=== PATIENT | male | born 1995 | race Two or more races ===

== ENCOUNTER 2025-01-31 21:52 | Emergency (ER) | payer BC, SELFPAY ==
[2025-01-31 21:54] VITALS: BMI 29.9
--- NOTE | 2025-01-31 22:01 | EDNOTE_ITS ---
ED Anxiety RME/HPI General Chief Complaint: General Adult/Misc Complain Stated Complaint: HEADACHE, NAUSEA,SOB Time Seen by Provider: 01/31/25 22:03 Arrival date/time: 01/31/25 21:52 RME / HPI RME / HPI narrative: See [facility] for Dr. Fowelr's HPI Documentation. Related Data Previous Rx's ?Medication ?Instructions ?Recorded acetaminophen 300 mg-codeine 30 mg 2 tab PO Q8H PRN pa in #20 tabs 02/01/25 tablet albuterol sulfate 90 mcg/actuation 2 puff inhalation Q 6H PRN 02/01/25 aerosol inhaler shortness of breath or wheez ing #8.5 grams ondansetron 4 mg disintegrating 4 mg PO TID PRN nausea and 02/01/25 tablet vomiting 30 days #10 tabs prednisone 50 mg tablet 50 mg PO QDAY #3 tabs Allergies Allergy/AdvReac Type Severity Reaction Status Date / Time No Known Allergies Allergy Verified 01/31/25 21:53 Review of Systems Review of Systems Systems Reviewed: All systems reviewed, normal except as documented ED Exam Narrative Physical exam: See [facility] for Dr. Fowler's Physical Exam Documentation. Course Quality Measures none Anxiety [facility] Narrative [facility] Narrative: This section includes all my notes and documentations, including HPI, PE, and ED course. 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 No other complaints. ROS: All negative except as documented in HPI. Physical Exam: General: Alert and oriented. No acute distress when remaining still. Eyes: Conjunctivae and lids clear. PERRL. EOMI. ENT: No nasal congestion. Neck: Supple. Heart: RRR. Lungs: No respiratory distress. Good air movement. No rhonchi, wheezing, rales. Abdomen: Soft and nontender. Normal bowel sounds. No distension. No rebound or guarding. Back: No CVA tenderness. Skin: Warm and dry. Neuro: Alert and oriented X 3. Cranial nerves II to XII grossly normal. No peripheral motor deficits. I reviewed all diagnostic test results: My interpretation of the EKG: NSR (77 bpm) with no ST-T changes. My interpretation of the chest x-ray is: NAD. My review of the Head/Brain CT report is: NAD. Blood tests remarkable for elevated carboxyhemoglobin. Covid/Influenza: Negative. At this point, diagnoses include: Carbon monoxide poisoning (mild) Treatment here included: 100% oxygen by none rebreather mask Xanax 0.5 mg Lopressor 25 mg Zofran 4 mg Significant improvement noted. Recommended supportive care. Based on my best medical judgment, made decision no further evaluation or treatment indicated at this time. Patient understands and agrees to the discharge instructions customized and printed, see below. Discharge instructions from Dr. Fowler: --No physical exertion for 3 days to help rest the lungs. ?No smoking or exposure to smoking or pets or dust or humidity. --Zithromax to kill the germs causing the bronchitis. --Prednisone to help decrease the swelling in the airways. --Albuterol 2 puffs every 4-6 hours for 3 days to help keep the airways open. Then as needed for cough or shortness of breath. --Tylenol with codeine for severe pain. --See a private doctor on 02/03/2025 if not completely better. --Seek immediate medical care with worsening or with any concerns. Javier Fowler MD Patient data External records reviewed:: [facility] previous records (Reviewed prior ED records from 10/24/22. Patient was seen for Elevated blood pressure reading.) Clinical information provided by:: patient Social determinants that could affect healthcare access:: none Patient has the following chronic illnesses:: Arthur reported How is presenting disease/condition affected by chronic disease/condition?: no chronic disease Evaluation data The following diagnostics were reviewed and interpreted by me:: lab results, radiology exam(s) and EKG tracing(s) (My interpretation of the EKG: NSR (77 bpm) with no ST-T changes. Javier Fowler MD) Lab and/or radiology exams considered but not ordered:: None Interpretation Summary: I reviewed all diagnostic test results: My interpretation of the EKG: NSR (77 bpm) with no ST-T changes. My interpretation of the chest x-ray is: NAD. My review of the Head/Brain CT report is: NAD. Blood tests remarkable for elevated carboxyhemoglobin. Covid/Influenza: Negative. Medications / Prescriptions Medications or Prescriptions considered but not ordered:: None Medication administrations:: Treatment here included: 100% oxygen by none rebreather mask Xanax 0.5 mg Lopressor 25 mg Zofran 4 mg Consultations Consultation(s) initiated? (list below): No Diagnosis Differential diagnosis anxiety: hyperventilation, panic disorder, acute anxiety and other (Carbon monoxide poisoning) Most likely diagnosis given after review of the tests above:: Mild carbon monoxide poisoning Admission Indicated Admission indicated?: not indicated Explain why admission is indicated or not indicated:: With significant improvement and no condition needing emergent intervention, there was no indication for admission. Admission Request Was there a request for admission?: No Disposition Plan Disposition Plan: Discharge Discharge Attestation Discharge Attestation: The patient and all family members were given an opportunity to ask questions and understood the discharge instructions. Discharge instructions specifically effects, indications for sooner follow up or return to the emergency department, and the expected course of current diagnosis. Patient condition: Stable Discharge Plan Plan Patient Disposition: HOME (Self Care) Prescriptions/Referrals Prescriptions/Med Rec: New acetaminophen-codeine 300-30 mg tablet 2 tab PO Q8H MDD 6 PRN (Reason: pain) Qty: 20 0RF prednisone 50 mg tablet 50 mg PO QDAY Qty: 3 0RF albuterol sulfate 90 mcg/actuation HFA aerosol inhaler 2 puff inhalation Q6H PRN (Reason: shortness of breath or wheezing) Qty: 8.5 0RF ondansetron 4 mg tablet,disintegrating 4 mg PO TID PRN (Reason: nausea and vomiting) 30 Days Qty: 10 0RF Referrals: Terence Hernandez MD [Primary Care Provider, Family Practice] - In 1 week Problem List Clinical Impression: Carbon monoxide exposure Patient/Caregiver Discharge Instructions Discharge Activity: activity as tolerated Education Materials: ED Carbon Monoxide Poisoning Additional Instructions: Discharge instructions from Dr. Fowler: --No physical exertion for 3 days to help rest the lungs. ?No smoking or exposure to smoking or pets or dust or humidity. --Zithromax to kill the germs causing the bronchitis. --Prednisone to help decrease the swelling in the airways. --Albuterol 2 puffs every 4-6 hours for 3 days to help keep the airways open. Then as needed for cough or shortness of breath. --Tylenol with codeine for severe pain. --See a private doctor on 02/03/2025 if not completely better. --Seek immediate medical care with worsening or with any concerns. Print Language: Kiswahili Stand Alone Forms: Kristine Award Info., Patient Portal Info Letter
[2025-01-31 22:02] VITALS: BP 161/91; PULSE 78; RESP 20; TEMP 37.1; O2SAT 98
--- NOTE | 2025-01-31 22:04 | EKG_ITS ---
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
--- NOTE | 2025-01-31 22:04 | XR_ITS ---
Examination: CT brain head without contrast. 2-D sagittal coronal reconstructions Date and time of exam:January 31, 2025 at 10:20 PM Indications: Headaches today CTDI: vol (mGy):53.5 DLP: (mGycm):1096 Technique: Multiple CT axial sections of the brain have been obtained, 5 mm slice thickness. Contrast has not been administered. 2-D sagittal, coronal reconstructions have been obtained Low dose protocols were performed. One or more of the following dose reduction techniques were used; automated exposure control, adjustment of the mA and/or KV according to patient size, use of iterative reconstruction technique. Findings: No significant ventricular enlargement. Intra-axial or extra-axial hemorrhage density is not seen. No mass effect or midline shift Basal cisterns are not remarkable. Fourth ventricle is midline. Cranial vault intact. Mild chronic frontal ethmoid sinusitis Impression: Negative for acute hemorrhage, mass effect or midline shift
--- NOTE | 2025-01-31 22:04 | XR_ITS ---
Examination: PA chest single view Technique: Upright PA chest single view Date and time: January 31, 2025 11:07 PM Indications: Shortness of breath today. Findings: Normal heart size Lungs are clear. Osseous structures are intact Impression: No active disease
[2025-01-31 22:45] LABS: Basophils # (Auto) 0.0 Thou/mm3 (0.0-0.2); Basophils % (Auto) 0 % (0-2.5); Carboxyhemoglobin 2.3 % (0.5-1.5); Eosinophils # (Auto) 0.1 Thou/mm3 (0.0-0.5); Eosinophils % (Auto) 0 % (0-10); Hematocrit 42.2 % (41.0-53.0); Hemoglobin 14.7 g/dL (13.5-16.0); Immature Granulocytes Auto 0.05 Thou/mm3 (0.00-0.00); Lymphocytes # (Auto) 2.6 Thou/mm3 (1.0-4.8); Lymphocytes % (Auto) 18 % (10-50); Mean Corpuscular HGB Conc 34.8 g/dl (31.0-37.0); Mean Corpuscular Hemoglobin 29.6 pg (25.0-35.0); Mean Corpuscular Volume 85 fL (80-100); Monocytes # (Auto) 0.7 Thou/mm3 (0.0-0.8); Monocytes % (Auto) 5 % (0-12); Neutrophils # (Auto) 11.4 Thou/mm3 (1.8-7.7); Neutrophils % (Auto) 77 % (37-80); Nucleated Red Blood Cell # 0.00 Thou/mm3 (0.00-0.00); Nucleated Red Blood Cell % 0 /100 WBC (0); Platelet Count 301 Thou/mm3 (140-440); RDW Standard Deviation 36.3 fL (35.1-43.9); Red Blood Count 4.96 Miln/mm3 (4.50-5.90); White Blood Count 15.0 Thou/mm3 (3.8-10.6)
[2025-01-31] MEDS: ONDANSETRON ODT 4 MG TABRAP PO (22:52)
[2025-01-31 22:53] VITALS: BP 161/91; PULSE 78
[2025-01-31] MEDS: METOPROLOL TARTRATE 25 MG TABLET PO (22:53)
[2025-01-31 23:03] LABS: D-Dimer < 250 ng/mL (<600)
[2025-01-31 23:06] LABS: B-Type Natriuretic Peptide < 20 pg/mL (0-100)
[2025-01-31 23:15] LABS: Alanine Aminotransferase 42 U/L (10-49); Albumin, Serum 4.8 gm/dL (3.5-5.0); Albumin/Globulin Ratio 1.8 (1.2-2.2); Alkaline Phosphatase 93 U/L (46-116); Anion Gap 10 (7-16); Aspartate Amino Transferase 20 U/L (0-34); BUN/Creatinine Ratio 14 Ratio (12-20); Bilirubin,Direct < 0.1 mg/dL (0.0-0.3); Bilirubin,Total 0.3 mg/dL (0.3-1.2); Blood Urea Nitrogen 13 mg/dL (9-23); Calcium 10.1 mg/dL (8.3-10.6); Calcium (Corrected) 10.1 mg/dL (8.5-10.1); Carbon Dioxide 25.9 mMol/L (20.0-31.0); Chloride 105 mMol/L (98-107); Creatinine (Component) 0.9 mg/dL (0.6-1.3); Estimated Creatinine Clearance 146.8 mL/min (>60); Globulin 2.7 gm/dL (2.3-3.5); Glucose 125 mg/dL (74-106); Magnesium 1.9 mg/dL (1.6-2.6); Osmolality,Calculated 282 (275-295); Potassium 3.7 mMol/L (3.4-5.1); Sodium 141 mMol/L (136-145); Thyroid Stimulating Hormone 1.79 uIU/mL (0.55-4.78); Total Protein 7.5 gm/dL (5.7-8.2); Troponin I < 0.020 ng/mL (0.0-0.045); eGFR > 60 See Note
[2025-02-01] MEDS: ALBUTEROL/IPRATROPIUM (Duoneb) RT SOL 3 ML NEBU INH (00:16)
[2025-02-01 00:17] VITALS: PULSE 62; RESP 16; O2SAT 100
[2025-02-01 00:21] VITALS: BP 150/99; PULSE 58; RESP 18; O2SAT 98
[2025-02-01] MEDS: SODIUM CHLORIDE 0.9% 1000 ML 1,000 ML 999 ML IV (00:27)
[2025-02-01] MEDS: MethylPREDNISolone SOD SUCC 62.5 MG/ML 2ML VIAL 125 MG IVP (00:30)
[2025-02-01 02:18] LABS: Carboxyhemoglobin 2.8 % (0.5-1.5)
[2025-02-01 02:36] VITALS: BP 150/99; PULSE 77; RESP 19; O2SAT 97
== END 2025-02-01 02:37 | disposition home or self-care (01) ==
PROVIDERS: Emergency Provider Emergency Medicine; PCP Family Medicine
DX: T58.01XA Toxic effect of carbon monoxide from motor vehicle exhaust, accidental (unintentional), initial encounter (principal); R51.9 Headache, unspecified; R07.9 Chest pain, unspecified; R06.02 Shortness of breath; R11.2 Nausea with vomiting, unspecified
CPT/HCPCS: 36415; 70450; 71045; 80053; 82248; 82375; 83735; 83880; 84443; 84484; 85025; 85379; 87400; 87811; 93005; 94640; 96361; 96374; 99284; J2919; J7030; Q0162; A9270